=== PATIENT | male | born 1975 | race Hispanic/Latino ===

== ENCOUNTER 2019-06-15 18:28 | Inpatient (IN) | payer OTHER ==
[~2019-06-15] VITALS: Ht 180.3 cm; Wt 107.5 kg
[2019-06-15] MEDS ORDERED: ASPIRIN 325 MG TABLET ONE (18:45)
[2019-06-15 19:19] LABS: CREATININE 1.3 mg/dL (0.5-1.5); POTASSIUM 3.9 mmol/L (3.5-5.1)
[2019-06-15 19:23] LABS: ALBUMIN 3.7 g/dL (3.5-5.0); BILIRUBIN,TOTAL 0.6 mg/dL (0.2-1.0); TOTAL PROTEIN, SERUM 7.5 g/dL (6.0-8.3)
[2019-06-15 19:42] LABS: BASOPHILS % (AUTO) 0.7 % (0.0-5.0); HEMATOCRIT 45.3 % (42-54); LYMPHOCYTES % (AUTO) 29.2 % (21.0-51.0); MEAN CORPUSCULAR HEMOGLOBIN 28.3 pg (27.0-33.0); MEAN CORPUSCULAR HGB CONC 34.7 g/dL (32.0-36.0); MEAN CORPUSCULAR VOLUME 81.5 fL (79-99); MONOCYTES % (AUTO) 10.6 % (3.0-13.0); NEUTROPHILS % (AUTO) 57.5 % (40.0-77.0); NUCLEATED RED BLOOD CELLS 0.1 % (0.0-0.19); PLATELET COUNT (AUTO) 156 K/uL (130-400); RED BLOOD CELL COUNT(AUTO) 5.56 MIL/uL (4.50-6.20); RED CELL DISTRIBUTION WIDTH 13.6 % (11.0-15.5); WHITE BLOOD COUNT (AUTO) 5.1 K/uL (4.8-10.8)
[2019-06-15 19:46] LABS: INR 0.92 (0.85-1.15); PARTIAL THROMBOPLASTIN TIME 24.8 SEC (26.3-35.5); PROTHROMBIN TIME 9.7 SEC (9.6-11.6)
[2019-06-15] MEDS ORDERED: NITROGLYCERIN 0.4 MG SL TAB SL ONE (19:54)
[2019-06-15] MEDS ORDERED: SODIUM CHLORIDE 0.9% 500ML 500 ML IV ONE (20:02)
[2019-06-15] MEDS ORDERED: INSULIN HUMULIN R 100 UNIT/ML 3ML ONE (20:02)
[2019-06-15] MEDS ORDERED: ENOXAPARIN SODIUM 100 MG/1 ML SQ ONE (20:41)
[2019-06-15] MEDS ORDERED: SODIUM CHLORIDE 0.9% 1000ML 1,000 ML IV SCH (22:51)
[2019-06-15] MEDS ORDERED: HYDRALAZINE HCL 20 MG/ML VIAL IV PRN (23:00)
[2019-06-15] MEDS ORDERED: ACETAMINOPHEN 325 MG TAB PO PRN ×2 (23:00)
[2019-06-15] MEDS ORDERED: MORPHINE SULFATE 4 MG/1ML SYG IV PRN (23:00)
[2019-06-15] MEDS ORDERED: MORPHINE SULFATE 2 MG/ML 1ML SYG IV PRN (23:00)
[2019-06-15] MEDS ORDERED: ONDANSETRON HCL 4 MG/2 ML VIAL IV PRN (23:00)
[2019-06-16 00:26] LABS: TROPONIN I 0.04 ng/mL (0.00-0.06)
[2019-06-16] MEDS ORDERED: NITROGLYCERIN 0.4 MG SL TAB SL PRN (04:00)
[2019-06-16 07:10] LABS: BASOPHILS % (AUTO) 0.5 % (0.0-5.0); EOSINOPHILS % (AUTO) 2.4 % (0.0-8.0); HEMATOCRIT 43.3 % (42-54); LYMPHOCYTES % (AUTO) 38.6 % (21.0-51.0); MEAN CORPUSCULAR HEMOGLOBIN 28.5 pg (27.0-33.0); MEAN CORPUSCULAR HGB CONC 34.3 g/dL (32.0-36.0); MEAN CORPUSCULAR VOLUME 82.9 fL (79-99); MONOCYTES % (AUTO) 13.6 % (3.0-13.0); NEUTROPHILS % (AUTO) 44.9 % (40.0-77.0); NUCLEATED RED BLOOD CELLS 0.2 % (0.0-0.19); PLATELET COUNT (AUTO) 138 K/uL (130-400); RED BLOOD CELL COUNT(AUTO) 5.22 MIL/uL (4.50-6.20)
[2019-06-16] MEDS: INSULIN HUMULIN R 100 UNIT/ML 3ML SQ SCH ×4 (07:30→21:00)
[2019-06-16 07:45] LABS: CREATINE KINASE, TOTAL 173 U/L (21-232); MYOGLOBIN 116 ng/mL (10-92); TROPONIN I < 0.04 ng/mL (0.00-0.06)
[2019-06-16] MEDS: ENOXAPARIN SODIUM 30 MG/0.3 ML SQ SCH (09:00)
[2019-06-16] MEDS: FAMOTIDINE/PF 20 MG/2 ML VIAL IV SCH ×2 (09:00→21:00)
[2019-06-16] MEDS: ASPIRIN 325 MG TABLET PO SCH (09:00)
[2019-06-16] MEDS ORDERED: METOPROLOL TARTRATE 25 MG TAB PO SCH (09:00)
[2019-06-16] MEDS ORDERED: REGADENOSON 0.4 MG/5 ML PF SYG IVP SCH (09:15)
[2019-06-16] MEDS ORDERED: ENOXAPARIN SODIUM 30 MG/0.3 ML SQ ONE (10:49)
[2019-06-16] MEDS ORDERED: ASPIRIN 81MG TAB.CHEW ONE (10:49)
[2019-06-16] MEDS ORDERED: FAMOTIDINE/PF 20 MG/2 ML VIAL IV ONE (10:50)
[2019-06-16] MEDS ORDERED: METOPROLOL TARTRATE 25 MG TAB ONE (10:50)
[2019-06-16] MEDS ORDERED: INSULIN HUMULIN R 100 UNIT/ML 3ML ONE ×3 (10:51→17:20)
[2019-06-16] MEDS ORDERED: SODIUM CHLORIDE 0.9% 1000ML 1,000 ML IV ONE (10:51)
[2019-06-16 11:17] LABS: AMPHET/METH SCREEN,URINE NEGATIVE (NEGATIVE); BARBITURATE SCREEN, URINE NEGATIVE (NEGATIVE); BENZODIAZEPINES SCREEN,URINE NEGATIVE (NEGATIVE); CANNABINOID SCREEN,URINE NEGATIVE (NEGATIVE); COCAINE SCREEN,URINE NEGATIVE (NEGATIVE); OPIATE SCREEN,URINE NEGATIVE (NEGATIVE); PHENCYCLIDINE SCREEN,URINE NEGATIVE (NEGATIVE)
[2019-06-16 15:01] LABS: CREATINE KINASE, TOTAL 183 U/L (21-232); MYOGLOBIN 57 ng/mL (10-92); TROPONIN I < 0.04 ng/mL (0.00-0.06)
[2019-06-16] MEDS ORDERED: ATOR40TA69 PO (20:20)
[2019-06-16] MEDS ORDERED: INSLAN SQ (20:20)
[2019-06-16] MEDS ORDERED: INSU200I SQ (20:20)
[2019-06-16] MEDS ORDERED: CARV3.12 PO (20:20)
[2019-06-16] MEDS ORDERED: CLOP75TA32 PO (20:20)
[2019-06-16] MEDS ORDERED: LISI2.5T2 PO (20:20)
[2019-06-16] MEDS ORDERED: INSULIN GLARGINE 100 UNITS/ML 10 ML VIAL SQ SCH (21:00)
[2019-06-16] MEDS: LISINOPRIL 5 MG TABLET PO SCH (21:00)
[2019-06-16] MEDS: CARVEDILOL 6.25 MG TABLET PO SCH (21:00)
[2019-06-16] MEDS ORDERED: FENOFIBRATE NANOCRYSTALLIZED 145 MG TAB PO SCH (21:00)
[2019-06-16] MEDS ORDERED: ATORVASTATIN CALCIUM 40 MG TABLET PO SCH (21:00)
[2019-06-16 23:55] VITALS: BP 157/107
[2019-06-17 04:00] VITALS: BP 129/73
[2019-06-17 05:11] LABS: HEMOGLOBIN A1C 11.6 % (4.0-6.0)
[2019-06-17 05:54] LABS: CHOLESTEROL 199 mg/dL (<200); CREATINE KINASE, TOTAL 160 U/L (21-232); HDL CHOLESTEROL 27 mg/dL (29-71); LDL DIRECT 89 mg/dL (0-99); MYOGLOBIN 57 ng/mL (10-92); PHOSPHORUS 3.8 mg/dL (2.5-4.9); TRIGLYCERIDES 444 mg/dL (30-200); TROPONIN I < 0.04 ng/mL (0.00-0.06)
[2019-06-17] MEDS: INSULIN HUMULIN R 100 UNIT/ML 3ML SQ SCH ×2 (06:25→11:30)
[2019-06-17 07:30] VITALS: BP 125/74
[2019-06-17] MEDS ORDERED: INSULIN LISPRO 100 UNIT/ML 3ML SQ SCH (07:30)
--- NOTE | 2019-06-17 07:50 | NUR ---
note AAOX3. DENIES PAIN OR DISCOMFORT NO DISTRESS OR SOB BBS CLEAR TO ALL LOBES TELEMETRY SR 80'S. HEART SOUNDS WITH GALLOP SOUNDS. INFORMED JULIA WITH DR CARVAJAL HE IS AWARE. NO N/V. NO OTHER PROBLEMS VOICED. PENDING FOR CARDIOLOGY TO CLEAR. HAD STRESS TEST DONE YESTERDAY ALSO PENDING MD TO GO OVER RESULTS WITH HIM.
[2019-06-17] MEDS ORDERED: MAGNESIUM 2GM PREMIX 50ML 50 ML IV STA (09:22)
[2019-06-17] MEDS: FAMOTIDINE/PF 20 MG/2 ML VIAL IV SCH (09:45)
[2019-06-17] MEDS: ASPIRIN 325 MG TABLET PO SCH (09:46)
[2019-06-17] MEDS: ENOXAPARIN SODIUM 30 MG/0.3 ML SQ SCH (09:46)
[2019-06-17] MEDS: LISINOPRIL 5 MG TABLET PO SCH (09:47)
[2019-06-17] MEDS: CARVEDILOL 6.25 MG TABLET PO SCH (09:47)
[2019-06-17] MEDS ORDERED: ASPI-1012 PO (09:56)
[2019-06-17] MEDS ORDERED: FENO145T PO (09:56)
--- NOTE | 2019-06-17 10:00 | NUR ---
NOTE JULIA WITH DR CARVAJAL CAME TO SEE PATIENT AND TOLD HIM HIS STRESS TEST WAS NORMAL AND THAT HE CAN GO HOME AND FOLLOW UP WITH THEM IN 2 WEEKS. ALSO ORDERED TO CANCEL 2D ECHO. ELIZABETH INFORMED AND WE WILL COVER HIS LOW MAGNESIUM LEVELS AND SEND HIM HOME AFTERWARDS.
--- NOTE | 2019-06-17 10:51 | NUR ---
DC PLAN PER PATIENT, STATES HE IS INDEPENDENT, LIVES ALONE, NO PROVIDER, NO EQUIPMENT, AND FEELS SAFE TO RETURN HOME. Addendum: 06/17/19 at 1051 by BABAK ALLEN RN CM Amended: Links added.
[2019-06-17 11:00] VITALS: BP 115/74
== END 2019-06-17 13:45 | disposition home or self-care (01) | DRG 305 ==
LOC: EDH 18:28 → EDHIP 22:51 → 4BH 06-16 22:55
PROVIDERS: ADMIT Internal Medicine; ATTEND Internal Medicine
DX: I16.0 Hypertensive urgency (principal); I25.10 Atherosclerotic heart disease of native coronary artery without angina pectoris; I10 Essential (primary) hypertension; E78.2 Mixed hyperlipidemia; E11.65 Type 2 diabetes mellitus with hyperglycemia; I25.2 Old myocardial infarction; Z95.5 Presence of coronary angioplasty implant and graft; Z79.899 Other long term (current) drug therapy
CPT/HCPCS: 36415; 71045; 78452; 80053; 80061; 80305; 82550; 82948; 83036; 83735; 83874; 84100; 84484; 85025; 85610; 85730; 93005; 93017; 96374; A9500; G0378; J0360; J1650; J1815; J2785; J3475; J3490; J7030; J7040